=== PATIENT | male | born 1950 | race Caucasian/White ===

== ENCOUNTER 2018-10-05 07:24 | Outpatient (CLI) | payer MEDICARE, BC ==
[2018-10-05] VITALS (17 sets, daily range): BP systolic 124–147; BP diastolic 71–85
== END 2018-10-05 23:59 | disposition home or self-care (01) ==
LOC: CARD DIAG 07:24
PROVIDERS: ATTEND Internal Medicine Interventional Cardiology
DX: R55 Syncope and collapse (principal); R42 Dizziness and giddiness
CPT/HCPCS: 93660